=== PATIENT | female | born 1960 | race African-American/Black ===

== ENCOUNTER 2018-04-13 18:03 | Emergency (ER) | payer SELFPAY ==
[2018-04-13 19:04] LABS: Absolute Lymphocytes (CBC) 1.4 K/uL (0.7-4.9); Absolute Monocytes 0.4 K/uL (0.1-1.3); Absolute Neutrophil 3.3 K/uL (1.8-8.0); Basophils % 0.9 % (0-1.3); Eosinophils % 0.7 % (0-4.4); Hematocrit 42.1 % (36.0-45.0); Lymphocytes % 26.6 % (15.3-44.8); MCH 32.6 pg (27.0-35.0); MCV 94.9 fL (80-100); MPV 9.1 fL (7.6-11.3); Monocytes % 8.5 % (3.3-12.3); RBC Red Blood Cell Count 4.44 M/uL (3.86-4.86)
[2018-04-13 19:08] LABS: Protime INR 0.98
[2018-04-13] MEDS ORDERED: MORPHINE 4 MG/ML SYR ONE (19:16)
[2018-04-13] MEDS ORDERED: ONDANSETRON 4 MG/2 ML VIAL ONE (19:16)
[2018-04-13 19:22] LABS: ALT/SGPT 124 U/L (12-78); AST/SGOT 104 U/L (15-37); Albumin 3.9 g/dL (3.4-5.0); Alkaline Phosphatase 84 U/L (45-117); BUN Blood Urea Nitrogen 13 mg/dL (7-18); Bicarbonate 30 mmol/L (21-32); Bilirubin Direct < 0.1 mg/dL (0-0.2); Bilirubin Total 0.2 mg/dL (0.2-1.0); CKMB Creatine Kinase MB 1.3 ng/mL (0.3-3.6); Creatine Phosphokinase 138 U/L (26-192); Glucose Level 102 mg/dL (74-106); Magnesium 2.2 mg/dL (1.8-2.4); NT PRO-BNP 28 pg/mL (<125); Potassium 3.7 mmol/L (3.5-5.1); Sodium Level 140 mmol/L (136-145)
--- NOTE | 2018-04-13 19:26 | RAD REPORT ---
EXAM DESCRIPTION: RAD - Chest Single View - 04/13/2018 7:12 pm CLINICAL HISTORY: CHEST PAIN<Reason For Exam>CHEST PAIN Left-sided chest pain, left-sided breast pain COMPARISON: Chest Single View dated 08/23/2016; Chest Single View dated 08/22/2016; Chest Single View da ricarda 12/10/2015; CHEST SINGLE VIEW dated 11/06/2015<Comparisons> TECHNIQUE: AP portable chest image was obtained 1909 hours . FINDINGS: Lung volumes are low. No peripheral mass or consolidation. No significant failure or volum e overload. Trachea is midline. Heart and vasculature are normal. No measurable pleural effusion and no pneumothorax. Bilateral shoulder joint degenerative change present and stable. No acute aortic fin dings suspected. IMPRESSION: Shallow inspiration chest film with no acute cardiopulmonary finding. No significant change from comparison.
--- NOTE | 2018-04-13 20:44 | EDPHYS ---
Physician Documentation [facility] Name: Kathie Oscar Age: 57 yrs Sex: Female : 1960 Arrival Date: 04/13/2018 Time: 18:07 Bed 28 Private MD: ED Physician Edgar Sanches HPI: 04/13 18:46 This 57 yrs old Black Female presents to ER via Ambulatory with complaints of Right pm1 Breast Problem. 18:46 The patient or guardian reports chest pain that is located primarily in the right pm1 breast. Onset: this morning. The pain radiates to the right arm. Associated signs and symptoms: Pertinent negatives: abdominal pain, cough, diaphoresis, dizziness, headache, nausea, palpitations, shortness of breath, vomiting. The chest pain is described as sharp. Duration: The patient or guardian reports a single episode, that is still ongoing. Modifying factors: the symptoms are aggravated by deep breath, Palpation of right breast. Severity of pain: in the emergency department the pain is unchanged. The patient has experienced similar episodes in the past, and the symptoms today are exactly the same, to previous right breast pain. Patient reports that she is due for her annual breast mammograms and ultrasounds. The patient has not recently seen a physician. Historical: - Allergies: 18:25 Codeine; sv - Home Meds: 18:25 amlodipine 5 mg tab 1 tab once daily [Active]; lisinopril Oral [Active]; metoprolol sv tartrate 25 mg Oral tab 1 tab 2 times per day [Active]; - PMHx: 18:25 Hypertension; Myocardial infarction; sv - PSHx: 18:25 Hysterectomy; back sx; C section; R knee repair; sv - Immunization history:: Adult Immunizations up to date. - Social history:: Smoking status: Patient/guardian denies using tobacco. - Ebola Screening: : No symptoms or risks identified at this time. ROS: 18:25 Constitutional: Negative for fever, chills, and weight loss, Eyes: Negative for injury, pm1 pain, redness, and discharge, ENT: Negative for injury, pain, and discharge, Neck: Negative for injury, pain, and swelling. 18:25 Respiratory: Negative for shortness of breath, cough, wheezing, and pleuritic chest pain, Abdomen/GI: Negative for abdominal pain, nausea, vomiting, diarrhea, and constipation, Back: Negative for injury and pain, : Negative for injury, bleeding, discharge, and swelling, MS/Extremity: Negative for injury and deformity, Skin: Negative for injury, rash, and discoloration, Neuro: Negative for headache, weakness, numbness, tingling, and seizure. 18:25 Cardiovascular: Positive for chest pain, of the right breast, Negative for edema, orthopnea, palpitations. Exam: 18:25 Constitutional: This is a well developed, well nourished patient who is awake, alert, pm1 and in no acute distress. Head/Face: Normocephalic, atraumatic. Eyes: Pupils equal round and reactive to light, extra-ocular motions intact. Lids and lashes normal. Conjunctiva and sclera are non-icteric and not injected. Cornea within normal limits. Periorbital areas with no swelling, redness, or edema. ENT: Nares patent. No nasal discharge, no septal abnormalities noted. Tympanic membranes are normal and external auditory canals are clear. Oropharynx with no redness, swelling, or masses, exudates, or evidence of obstruction, uvula midline. Mucous membranes moist. Neck: Trachea midline, no thyromegaly or masses palpated, and no cervical lymphadenopathy. Supple, full range of motion without nuchal rigidity, or vertebral point tenderness. No Meningismus. Cardiovascular: Regular rate and rhythm with a normal S1 and S2. No gallops, murmurs, or rubs. Normal PMI, no JVD. No pulse deficits. Respiratory: Lungs have equal breath sounds bilaterally, clear to auscultation and percussion. No rales, rhonchi or wheezes noted. No increased work of breathing, no retractions or nasal flaring. Abdomen/GI: Soft, non-tender, with normal bowel sounds. No distension or tympany. No guarding or rebound. No evidence of tenderness throughout. Back: No spinal tenderness. No costovertebral tenderness. Full range of motion. Skin: Warm, dry with normal turgor. Normal color with no rashes, no lesions, and no evidence of cellulitis. MS/ Extremity: Pulses equal, no cyanosis. Neurovascular intact. Full, normal range of motion. 18:25 Neuro: Orientation: is normal, Motor: is normal, Sensation: is normal, no obvious gross deficits. 18:46 Chest/axilla: Breasts: abscess, not appreciated, cellulitis, is not appreciated, pm1 mass(es), in the right breast, that is tender, that is freely movable, reproduces patient's chest pain, Lisette GOULD present to disability counselor for right breast examination. Vital Signs: 18:25 BP 149 / 81; Pulse 95; Resp 16; Temp 98.8; Pulse Ox 96% ; Weight 88.45 kg; Height 5 ft. sv 3 in. (160.02 cm); Pain 8/10; 19:24 BP 134 / 78; Pulse 78; Resp 16; Pulse Ox 99% on R/A; ak1 20:23 BP 144 / 88; Pulse 78; Resp 16; Pulse Ox 100% on R/A; ak1 18:25 Body Mass Index 34.54 (88.45 kg, 160.02 cm) sv MDM: 18:36 Patient medically screened. pm1 20:38 Differential diagnosis: acute myocardial infarction, chest wall pain, Breast mass. pm1 20:39 Data reviewed: vital signs. Data interpreted: Pulse oximetry: on room air is 100 %. pm1 Interpretation: normal. Counseling: I had a detailed discussion with the patient and/or guardian regarding: the historical points, exam findings, and any diagnostic results supporting the discharge/admit diagnosis, lab results, radiology results, the need for outpatient follow up, to return to the emergency department if symptoms worsen or persist or if there are any questions or concerns that arise at home. 20:40 ED course: Palpation of patient's right breast masses reproduce pain completely. pm1 Patient with history of fibrocystic breast tissue. Patient is due for her 1 year annual mammogram/ultrasound. Patient instructed to follow up with her PCP to get these performed. 04/13 18:42 Order name: Basic Metabolic Panel; Complete Time: 19:27 pm04/13 18:42 Order name: CBC with Diff; Complete Time: 19:27 pm04/13 18:42 Order name: Ckmb; Complete Time: 19:27 pm04/13 18:42 Order name: CPK; Complete Time: 19:27 pm04/13 18:42 Order name: LFT's; Complete Time: 19:27 pm04/13 18:42 Order name: Magnesium; Complete Time: 19:27 pm04/13 18:42 Order name: NT PRO-BNP; Complete Time: 19:27 pm1 04/13 18:42 Order name: PT-INR; Complete Time: 19:27 pm04/13 18:42 Order name: Ptt, Activated; Complete Time: 19:27 pm04/13 18:42 Order name: Troponin (emerg Dept Use Only); Complete Time: 20:26 pm1 04/13 18:42 Order name: XRAY Chest (1 view); Complete Time: 19:27 pm04/13 19:25 Order name: Urine Dipstick--Ancillary (enter results) mo 04/13 19:25 Order name: Urine --Ancillary (enter results) mo 04/13 18:42 Order name: Urine Test (obtain specimen); Complete Time: 19:20 pm1 04/13 18:42 Order name: EKG; Complete Time: 18:43 pm1 04/13 18:42 Order name: Cardiac monitoring; Complete Time: 18:49 pm04/13 18:42 Order name: EKG - Nurse/Tech; Complete Time: 18:49 pm04/13 18:42 Order name: IV Saline Lock; Complete Time: 18:49 pm1 04/13 18:42 Order name: Labs collected and sent; Complete Time: 18:49 pm04/13 18:42 Order name: O2 Per Protocol; Complete Time: 18:49 pm04/13 18:42 Order name: O2 Sat Monitoring; Complete Time: 18:50 pm1 04/13 18:42 Order name: Urine Dipstick-Ancillary (obtain specimen); Complete Time: 19:20 pm1 Administered Medications: 19:19 Drug: Zofran 4 mg Route: IVP; Site: left antecubital; ak1 19:20 Follow up: Response: No adverse reaction ak1 19:20 Drug: morphine 4 mg Route: IVP; Site: left antecubital; ak1 19:21 Follow up: Response: No adverse reaction ak1 Disposition: 04/14 08:10 Co-signature as Attending Physician, Edgar Sanches MD. rn Disposition: 04/13/18 20:43 Discharged to Home. Impression: Right breast mass and pain. - Condition is Stable. - Discharge Instructions: Breast Self-Awareness, Breast Tenderness, Fibrocystic Breast Changes, [id number]. - Prescriptions for Tylenol- Codeine #3 300-30 mg Oral Tablet - take 2 tablets by ORAL route every 6 hours As needed; 20 tablet. - Medication Reconciliation Form, Thank You Letter, Antibiotic Education, Prescription Opioid Use form. - Follow up: Emergency Department; When: As needed; Reason: Worsening of condition. Follow up: Private Physician; When: 2 - 3 days; Reason: Recheck today's complaints, Continuance of care, Re-evaluation by your physician. - Problem is new. - Symptoms have improved. Signatures: Dispatcher [employer] Tania Capone RN RN Edgar Leung MD MD rn Krenek, Amber, RN RN ak1 Orlando Boo, ELECTRIC METER REPAIRER HELPER ELECTRIC METER REPAIRER HELPER pm1 Corrections: (The following items were deleted from the chart) 04/13 21:00 20:43 04/13/2018 20:43 Discharged to Home. Impression: Right breast mass and pain. ak1 Condition is Stable. Forms are Medication Reconciliation Form, Thank You Letter, Antibiotic Education, Prescription Opioid Use. Follow up: Emergency Department; When: As needed; Reason: Worsening of condition. Follow up: Private Physician; When: 2 - 3 days; Reason: Recheck today's complaints, Continuance of care, Re-evaluation by your physician. Problem is new. Symptoms have improved. pm1
--- NOTE | 2018-04-13 20:44 | ER ---
Nurse's Notes [facility] Name: Kathie Oscar Age: 57 yrs Sex: Female : 1960 Arrival Date: 04/13/2018 Time: 18:07 Bed 28 Private MD: Diagnosis: Right breast mass and pain Presentation: 04/13 18:24 Presenting complaint: Patient states: left breast pain that radiates to the left arm. sv My chest "feels funny." Worse with deep breathing. Transition of care: patient was not received from another setting of care. Onset of symptoms was April 13, 2018 at 15:00. Care prior to arrival: None. 18:24 Method Of Arrival: Ambulatory sv 18:24 Acuity: CHICO 3 sv 19:22 Risk Assessment: Do you want to hurt yourself or someone else? Patient reports no ak1 desire to harm self or others. Initial Sepsis Screen: Does the patient meet any 2 criteria? No. Patient's initial sepsis screen is negative. Does the patient have a suspected source of infection? No. Patient's initial sepsis screen is negative. Historical: - Allergies: 18:25 Codeine; sv - Home Meds: 18:25 amlodipine 5 mg tab 1 tab once daily [Active]; lisinopril Oral [Active]; metoprolol sv tartrate 25 mg Oral tab 1 tab 2 times per day [Active]; - PMHx: 18:25 Hypertension; Myocardial infarction; sv - PSHx: 18:25 Hysterectomy; back sx; C section; R knee repair; sv - Immunization history:: Adult Immunizations up to date. - Social history:: Smoking status: Patient/guardian denies using tobacco. - Ebola Screening: : No symptoms or risks identified at this time. Screenin:41 Abuse screen: Denies threats or abuse. Denies injuries from another. Nutritional ss screening: No deficits noted. Tuberculosis screening: Never had TB. Fall Risk None identified. No fall in past 12 months (0 pts). No secondary diagnosis (0 pts). IV access (20 points). Ambulatory Aid- None/Bed Rest/Nurse Assist (0 pts). Gait- Normal/Bed Rest/Wheelchair (0 pts) Mental Status- Oriented to own ability (0 pts). Assessment: 18:41 General: Appears uncomfortable, Behavior is calm, cooperative. Pain: Complains of pain ss in right breast Pain radiates to right arm Pain currently is 7 out of 10 on a pain scale. at worst was 9 out of 10 on a pain scale. Quality of pain is described as tender, "pulling" Pain began 1300 today Is continuous, Aggravated by deep breathing, palpation. Neuro: Level of Consciousness is awake, alert, obeys commands, Oriented to person, place, time, situation. Cardiovascular: Capillary refill < 3 seconds is brisk in bilateral fingers. Respiratory: Airway is patent Respiratory effort is even, unlabored, Respiratory pattern is regular, symmetrical. Respiratory: Reports pain with respiration Breath sounds are clear bilaterally. Denies cough, shortness of breath. GI: Patient currently denies diarrhea, nausea, vomiting. : No signs and/or symptoms were reported regarding the genitourinary system. EENT: Nares are clear. Derm: Skin is intact, is healthy with good turgor. Musculoskeletal: Circulation, motion, and sensation intact. Capillary refill < 3 seconds, is brisk, in bilateral fingers. Range of motion: intact in all extremities, Swelling absent. 19:21 Reassessment: Patient appears in no apparent distress at this time. No changes from ak1 previously documented assessment. Patient is alert, oriented x 3, equal unlabored respirations, skin warm/dry/pink. pt with steady gait to ER restroom. pt resting comfortably, resp even and unlabored. will continue to monitor. Vital Signs: 18:25 BP 149 / 81; Pulse 95; Resp 16; Temp 98.8; Pulse Ox 96% ; Weight 88.45 kg; Height 5 ft. sv 3 in. (160.02 cm); Pain 8/10; 19:24 BP 134 / 78; Pulse 78; Resp 16; Pulse Ox 99% on R/A; ak1 20:23 BP 144 / 88; Pulse 78; Resp 16; Pulse Ox 100% on R/A; ak1 18:25 Body Mass Index 34.54 (88.45 kg, 160.02 cm) sv ED Course: 18:07 Patient arrived in ED. es 18:25 Triage completed. sv 18:26 Arm band placed on left wrist. sv 18:28 Amelia Cortes, LUIS FERNANDO is Primary Nurse. aj1 18:36 Orlando Boo NP is PHCP. pm1 18:36 Edgar Sanches MD is Attending Physician. pm1 18:38 Inserted saline lock: 20 gauge in left antecubital area, using aseptic technique. Blood ss collected. 18:41 Patient has correct armband on for positive identification. Bed in low position. Call ss light in reach. radiographer angiogram on. Pulse ox on. NIBP on. 19:00 Placed in gown. Side rails up X2. jp3 19:02 Warm blanket given. Pillow given. jp3 19:02 EKG done, by ED staff, reviewed by Orlando Boo NP. jp3 19:11 XRAY Chest (1 view) In Process Unspecified. EDMS 19:24 Urine collected: clean catch specimen, clear, olamide colored, Amount Voided: 60mL. jp3 20:46 No provider procedures requiring assistance completed. ak1 20:57 IV discontinued, intact, bleeding controlled, No redness/swelling at site. Pressure ak1 dressing applied. Administered Medications: 19:19 Drug: Zofran 4 mg Route: IVP; Site: left antecubital; ak1 19:20 Follow up: Response: No adverse reaction ak1 19:20 Drug: morphine 4 mg Route: IVP; Site: left antecubital; ak1 19:21 Follow up: Response: No adverse reaction ak1 Outcome: 20:43 Discharge ordered by MD. pm1 20:47 Discharged to home ambulatory, with family. ak1 20:47 Condition: stable 20:53 Discharge instructions given to patient, Instructed on discharge instructions, follow ak1 up and referral plans. no drinking with medication, no driving heavy equipment, medication usage, Demonstrated understanding of instructions, follow-up care, medications, Prescriptions given X 1. 21:00 Patient left the ED. ak1 Signatures: Dispatcher [employer] EDAK Amelia Cortes RN RN aj1 Verde, Stephanie, RN RN sv Salyer, Edna es Smirch, Shelby, RN RN ss Krenek, Amber, RN RN ak1 Marinas, Patrick, NP WASTE PICKER pm1 Hood Goldman jp3 Corrections: (The following items were deleted from the chart) 18:27 18:24 Presenting complaint: Patient states: left breast pain that radiates to the left sv arm. My chest "feels funny." sv
[2018-04-13 21:23] LABS: Urine Blood NEGATIVE (NEG); Urine Glucose NEGATIVE (NEG); Urine Protein NEGATIVE (NEG); Urine Specific Gravity 1.025 (1.005-1.030)
[2018-04-13 21:33] VITALS: TEMP 98.8
[2018-04-13 21:35] VITALS: BP 144/88; O2SAT 100
--- NOTE | 2018-04-14 16:30 | EKG ---
Test Date: 2018-04-13 Test Time: 18:57:42 Grants Administrator: MILTON MEASUREMENT RESULTS: Intervals: Rate: 78 MA: 166 QRSD: 84 QT: 368 QTc: 419 [place]: P: 28 MA: 166 QRS: -19 T: 52 INTERPRETIVE STATEMENTS: Normal sinus rhythm Possible Left atrial enlargement Left ventricular hypertrophy Nonspecific T wave abnormality Abnormal ECG Compared to ECG 09/14/2017 20:02:16 Myocardial infarct finding no longer present Possible ischemia no longer present T-wave abnormality still present Electronically Signed On 04-14-18 16:26:28 CDT by Jarett Saenz
== END 2018-04-13 21:00 | disposition home or self-care (01) ==
LOC: ER 18:03
DX: N64.4 Mastodynia (principal); N63.0 Unspecified lump in unspecified breast; I10 Essential (primary) hypertension; Z88.6 Allergy status to analgesic agent
CPT/HCPCS: 36415; 71045; 80048; 80076; 81003; 81025; 82550; 82553; 83735; 83880; 84484; 85025; 85610; 85730; 93005; 96374; 96375; 99284; J2405

== ENCOUNTER 2019-07-05 12:13 | Observation (INO) | payer SELFPAY ==
[2019-07-05 12:41] LABS: Absolute Lymphocytes (CBC) 1.5 K/uL (0.7-4.9); Basophils % 0.6 % (0-1.3); Hematocrit 40.4 % (36.0-45.0); Lymphocytes % 44.4 % (15.3-44.8); MPV 8.3 fL (7.6-11.3); RBC Red Blood Cell Count 4.32 M/uL (3.86-4.86)
[2019-07-05 12:54] LABS: Protime INR 1.05
--- NOTE | 2019-07-05 12:56 | RAD REPORT ---
EXAM DESCRIPTION: Veronique Single View07/05/2019 12:46 pm CLINICAL HISTORY: Chest pain COMPARISON: 2018 FINDINGS: The lungs appear clear of acute infiltrate. The heart is normal size IMPRESSION: No acute abnormalities displayed
[2019-07-05 13:00] LABS: ALT/SGPT 53 U/L (12-78); AST/SGOT 42 U/L (15-37); Albumin 3.6 g/dL (3.4-5.0); Alkaline Phosphatase 77 U/L (45-117); BUN Blood Urea Nitrogen 12 mg/dL (7-18); Bicarbonate 26 mmol/L (21-32); Bilirubin Direct 0.1 mg/dL (0-0.2); Bilirubin Total 0.5 mg/dL (0.2-1.0); Glucose Level 168 mg/dL (74-106); Magnesium 1.9 mg/dL (1.8-2.4); NT PRO-BNP 42 pg/mL (<125); Potassium 3.8 mmol/L (3.5-5.1); Protein, Total 8.3 g/dL (6.4-8.2); Sodium Level 140 mmol/L (136-145); Troponin (Emerg Dept Use Only) < 0.02 ng/mL (0.0-0.045)
--- NOTE | 2019-07-05 13:34 | EDPHYS ---
Physician Documentation [facility] Name: Kathie Collado Age: 59 yrs Sex: Female : 1960 Arrival Date: 07/05/2019 Time: 12:14 Bed 26 Private MD: ED Physician Shi Balderrama HPI: 07/05 13:18 This 59 yrs old Black Female presents to ER via Ambulatory with complaints of Chest ma2 Pain, Neck Pain, <24hrs Old. 13:18 The patient or guardian reports chest pain that is located primarily in the substernal ma2 area. Onset: gradually, 3 day(s) ago. Associated signs and symptoms: Pertinent negatives: abdominal pain, dizziness, lower extremity swelling, lightheadedness. The chest pain is described as aching. Severity of pain: At its worst the pain was moderate in the emergency department the pain is unchanged. The patient has experienced a previous episode. Historical: - Allergies: 12:20 Codeine; aj1 - Home Meds: 12:20 lisinopril Oral [Active]; aj1 12:22 Metformin Oral [Active]; aj1 - PMHx: 12:20 Hypertension; Myocardial infarction; aj1 12:22 Diabetes - NIDDM; aj1 - Immunization history:: Flu vaccine is not up to date. - Social history:: Smoking status: Patient/guardian denies using tobacco. - Ebola Screening: : Patient denies travel to an Ebola-affected area in the 21 days before illness onset. - Family history:: not pertinent. - Hospitalizations: : No recent hospitalization is reported. ROS: 13:18 Constitutional: Negative for fever, chills, and weight loss. ma2 13:18 All other systems are negative. Exam: 13:18 Constitutional: This is a well developed, well nourished patient who is awake, alert, ma2 and in no acute distress. ENT: Nares patent. No nasal discharge, no septal abnormalities noted. Tympanic membranes are normal and external auditory canals are clear. Oropharynx with no redness, swelling, or masses, exudates, or evidence of obstruction, uvula midline. Mucous membranes moist. Chest/axilla: Normal chest wall appearance and motion. Nontender with no deformity. No lesions are appreciated. Cardiovascular: Regular rate and rhythm with a normal S1 and S2. No gallops, murmurs, or rubs. Normal PMI, no JVD. No pulse deficits. Respiratory: Lungs have equal breath sounds bilaterally, clear to auscultation and percussion. No rales, rhonchi or wheezes noted. No increased work of breathing, no retractions or nasal flaring. Abdomen/GI: Soft, non-tender, with normal bowel sounds. No distension or tympany. No guarding or rebound. No evidence of tenderness throughout. Vital Signs: 12:20 BP 180 / 102; Pulse 76; Resp 18; Temp 98.5; Pulse Ox 98% on R/A; Weight 87.09 kg (R); aj1 Height 5 ft. 3 in. (160.02 cm) (R); 12:34 BP 158 / 91; Pulse 74; Resp 22 S; Pulse Ox 96% on R/A; Pain 5/10; jp3 14:36 BP 148 / 83; Pulse 80; Resp 18; Pulse Ox 98% on R/A; mg2 12:20 Body Mass Index 34.01 (87.09 kg, 160.02 cm) aj1 MDM: 12:23 Patient medically screened. ma2 13:18 Differential diagnosis: abnormal EKG, acute myocardial infarction, anxiety, ma2 gastroesophageal reflux disease (GERD), stable angina. The patient was given aspirin in the Emergency Department. JONES Risk Score: 1- Known CAD. Data reviewed: vital signs, nurses notes. Counseling: I had a detailed discussion with the patient and/or guardian regarding: the historical points, exam findings, and any diagnostic results supporting the discharge/admit diagnosis, the presence of at least one elevated blood pressure reading (>120/80) during this emergency department visit, declined pain control in er . 13:33 ED course: discussed with naun. pa2 07/05 12:23 Order name: Basic Metabolic Panel; Complete Time: 13:19 [facility] 07/05 12:23 Order name: CBC with Diff; Complete Time: 13:19 [facility] 07/05 12:23 Order name: LFT's; Complete Time: 13:19 [facility] 07/05 12:23 Order name: Magnesium; Complete Time: 13:19 [facility] 07/05 12:23 Order name: NT PRO-BNP; Complete Time: 13:19 [facility] 07/05 12:23 Order name: PT-INR; Complete Time: 13:19 ma2 07/05 12:23 Order name: Troponin (emerg Dept Use Only); Complete Time: 13:19 ma2 07/05 14:31 Order name: Thyroid Stimulating Hormone EDOH 07/05 14:31 Order name: CBC with Automated Diff EDMS 07/05 14:31 Order name: CBC with Automated Diff EDMS 07/05 14:31 Order name: CKMB Creatine Kinase MB EDOH 07/05 14:31 Order name: CKMB Creatine Kinase MB EDOH 07/05 14:31 Order name: CKMB Creatine Kinase MB EDOH 07/05 14:31 Order name: CKMB Creatine Kinase MB [facility]OH 07/05 12:23 Order name: XRAY Chest (1 view); Complete Time: 13:19 ma2 07/05 12:23 Order name: EKG; Complete Time: 12:24 ma2 07/05 12:23 Order name: Cardiac monitoring; Complete Time: 12:41 ma2 07/05 14:31 Order name: CONS Physician Consult [facility]OH 07/05 14:31 Order name: Consistent Carb (ADA) 1800 Will [facility]OH 07/05 14:31 Order name: Comprehensive Metabolic Panel [facility] 07/05 14:31 Order name: Comprehensive Metabolic Panel [facility] 07/05 14:31 Order name: Lipid Profile [facility] 07/05 14:31 Order name: Lipid Profile [facility] 07/05 14:31 Order name: Magnesium [facility] 07/05 14:31 Order name: Magnesium [facility] 07/05 14:31 Order name: Troponin I [facility] 07/05 14:31 Order name: Troponin I [facility] 07/05 14:31 Order name: Troponin I [facility] 07/05 14:31 Order name: Troponin I [facility] 07/05 14:34 Order name: Echo with Doppler [facility] 07/05 12:23 Order name: EKG - Nurse/Tech; Complete Time: 12:41 ma2 07/05 12:23 Order name: IV Saline Lock; Complete Time: 12:41 ma2 07/05 12:23 Order name: Labs collected and sent; Complete Time: 12:41 ma2 07/05 12:23 Order name: O2 Per Protocol; Complete Time: 12:41 ma2 07/05 12:23 Order name: O2 Sat Monitoring; Complete Time: 12:41 ma2 Administered Medications: No medications were administered Disposition: 07/05/19 13:34 Hospitalization ordered by Albert Carty for Observation. Preliminary diagnosis is Other chest pain. - Bed requested for Telemetry/MedSurg (observation). - Status is Observation. mg2 - Condition is Stable. - Problem is new. - Symptoms are unchanged. UTI on Admission? No Signatures: Dispatcher [employer] EDMS Amelia Cortes RN RN aj1 Joy Pablo RN RN dw Shi Balderrama MD MD ma2 Surjit Ritchie RN RN mg2 Corrections: (The following items were deleted from the chart) 15:17 13:34 Hospitalization Ordered by Albert Carty MD for Observation. Preliminary dw diagnosis is Other chest pain. Bed requested for Telemetry/MedSurg (observation). Status is Observation. Condition is Stable. Problem is new. Symptoms are unchanged. UTI on Admission? No. ma2 15:49 15:17 07/05/2019 13:34 Hospitalization Ordered by Albert Carty MD for Observation. mg2 Preliminary diagnosis is Other chest pain. Bed requested for Telemetry/MedSurg (observation). Status is Observation. Condition is Stable. Problem is new. Symptoms are unchanged. UTI on Admission? No. dw
--- NOTE | 2019-07-05 13:34 | ER ---
Nurse's Notes [facility] Name: Kathie Collado Age: 59 yrs Sex: Female : 1960 Arrival Date: 07/05/2019 Time: 12:14 Bed 26 Private MD: Diagnosis: Other chest pain Presentation: 07/05 12:17 Presenting complaint: Patient states: "It started a few days ago, pains in my neck and aj1 its going down to chest. And I've been having real bad headaches too, and every so often I get a funny feelings in my chest and it makes me do like a hacking cough" Denies recent injury. Denies shortness of breath. Transition of care: patient was not received from another setting of care. Onset of symptoms was July 01, 2019. Risk Assessment: Do you want to hurt yourself or someone else? Patient reports no desire to harm self or others. Initial Sepsis Screen: Does the patient meet any 2 criteria? No. Patient's initial sepsis screen is negative. Does the patient have a suspected source of infection? No. Patient's initial sepsis screen is negative. Care prior to arrival: None. 12:17 Method Of Arrival: Ambulatory aj1 12:17 Acuity: [facility] 3 aj1 Triage Assessment: 12:20 General: Appears in no apparent distress. comfortable, Behavior is calm, cooperative, aj1 appropriate for age. Pain: Complains of pain in left trapezius, anterior aspect of left upper chest and left side of neck Pain does not radiate. Pain currently is 7 out of 10 on a pain scale. Pain began 3-4 days ago Is continuous, Alleviated by nothing. Aggravated by nothing. Neuro: Level of Consciousness is awake, alert, obeys commands, Oriented to person, place, time, situation. Cardiovascular: Reports chest pain, Denies shortness of breath, Patient's skin is warm and dry. Respiratory: Airway is patent Respiratory effort is even, unlabored, Respiratory pattern is regular, symmetrical. Historical: - Allergies: 12:20 Codeine; aj1 - Home Meds: 12:20 lisinopril Oral [Active]; aj1 12:22 Metformin Oral [Active]; aj1 - PMHx: 12:20 Hypertension; Myocardial infarction; aj1 12:22 Diabetes - NIDDM; aj1 - Immunization history:: Flu vaccine is not up to date. - Social history:: Smoking status: Patient/guardian denies using tobacco. - Ebola Screening: : Patient denies travel to an Ebola-affected area in the 21 days before illness onset. - Family history:: not pertinent. - Hospitalizations: : No recent hospitalization is reported. Screenin:55 Abuse screen: Denies threats or abuse. Denies injuries from another. Nutritional mg2 screening: No deficits noted. Tuberculosis screening: No symptoms or risk factors identified. Fall Risk IV access (20 points). Assessment: 12:55 General: Appears in no apparent distress. comfortable, Behavior is calm, cooperative. mg2 Pain: Complains of pain in neck Pain radiates to chest , left shoulder Pain currently is 3 out of 10 on a pain scale. Quality of pain is described as aching, Pain began gradually. Neuro: Level of Consciousness is awake, alert, obeys commands, Oriented to person, place, time, situation. Cardiovascular: Capillary refill < 3 seconds Patient's skin is warm and dry. Respiratory: Airway is patent Respiratory effort is even, unlabored, Respiratory pattern is regular, symmetrical. GI: No signs and/or symptoms were reported involving the gastrointestinal system. : No signs and/or symptoms were reported regarding the genitourinary system. EENT: No signs and/or symptoms were reported regarding the EENT system. Derm: Skin is intact, is healthy with good turgor, Skin is pink, warm \\T\\ dry. normal. Musculoskeletal: Circulation, motion, and sensation intact. Capillary refill < 3 seconds. 14:36 Reassessment: Patient appears in no apparent distress at this time. Patient and/or mg2 family updated on plan of care and expected duration. Pain level reassessed. Patient is alert, oriented x 3, equal unlabored respirations, skin warm/dry/pink. hospitalist came and spoke to the patient. admission advised. Vital Signs: 12:20 BP 180 / 102; Pulse 76; Resp 18; Temp 98.5; Pulse Ox 98% on R/A; Weight 87.09 kg (R); aj1 Height 5 ft. 3 in. (160.02 cm) (R); 12:34 BP 158 / 91; Pulse 74; Resp 22 S; Pulse Ox 96% on R/A; Pain 5/10; jp3 14:36 BP 148 / 83; Pulse 80; Resp 18; Pulse Ox 98% on R/A; mg2 12:20 Body Mass Index 34.01 (87.09 kg, 160.02 cm) aj1 ED Course: 12:14 Patient arrived in ED. as 12:19 Triage completed. aj1 12:22 Arm band placed on Patient placed in an exam room. aj1 12:23 Shi Balderrama MD is Attending Physician. ma2 12:25 Placed in gown. Bed in low position. Call light in reach. Side rails up X 1. Warm jp3 blanket given. Verbal reassurance given. surveillance monitor on. Pulse ox on. NIBP on. 12:25 Patient maintains SpO2 saturation greater than 95% on room air. jp3 12:26 Surjit Ritchie, RN is Primary Nurse. mg2 12:46 XRAY Chest (1 view) In Process Unspecified. EDMS 12:49 EKG done, by failure analysis technician. reviewed by Shi Balderrama MD. tc 12:57 No provider procedures requiring assistance completed. Inserted saline lock: 20 gauge mg2 in right forearm, using aseptic technique. Blood collected. 13:34 Albert Carty MD is Hospitalizing Provider. ma2 15:35 Patient admitted, IV remains in place. mg2 Administered Medications: No medications were administered Outcome: 13:34 Decision to Hospitalize by Provider. ma2 15:34 Admitted to Med/surg accompanied by tech, via wheelchair, room 224, with chart, Report mg2 called to LUIS FERNANDO Marx 15:34 Condition: stable 15:34 Instructed on the need for admit, Demonstrated understanding of instructions. 15:49 Patient left the ED. mg2 Signatures: Dispatcher [employer] EDMS Amelia Cortes, RN RN aj1 Elsie Adams Tiffany, base remover EKG Ttc Shi Balderrama MD MD ma2 Surjit Ritchie, LUIS FERNANDO RN mg2 Hood Goldman jp3
[2019-07-05] MEDS ORDERED: ONDANSETRON 4 MG/2 ML VIAL IV PRN (14:21)
[2019-07-05 14:59] LABS: CKMB Creatine Kinase MB 1.3 ng/mL (0.3-3.6); Troponin I < 0.02 ng/mL (0.0-0.045)
[2019-07-05 16:01] VITALS: BMI 34.0
[2019-07-05] MEDS: ACETAMINOPHEN 500 MG TAB PO PRN ×2 (16:20→23:19)
[2019-07-05] MEDS: ENOXAPARIN 40 MG/0.4 ML SQ SCH (16:21)
[2019-07-05] MEDS: INSULIN -REGULAR HUMAN 50 UNIT/0.5 ML ML SQ SCH ×2 (16:30→21:00)
[2019-07-05] MEDS ORDERED: POTASSIUM CL SA 10 MEQ TAB PO ONE (17:00)
--- NOTE | 2019-07-05 18:35 | EKG ---
Test Date: 2019-07-05 Test Time: 12:42:50 Field Observer: MOHAMUD MEASUREMENT RESULTS: Intervals: Rate: 71 ME: 170 QRSD: 76 QT: 378 QTc: 410 [place]: P: 48 ME: 170 QRS: -17 T: 85 INTERPRETIVE STATEMENTS: Normal sinus rhythm Possible Left atrial enlargement Left ventricular hypertrophy with repolarization abnormality Abnormal ECG No previous ECG available for comparison Electronically Signed On 07-05-19 18:34:49 STAFF ATTORNEY by Jarett Saenz
[2019-07-05 21:08] LABS: CKMB Creatine Kinase MB 1.2 ng/mL (0.3-3.6); Troponin I < 0.02 ng/mL (0.0-0.045)
[2019-07-05] MEDS: lisinopriL 5 MG TAB PO SCH (21:21)
[2019-07-05] MEDS: ATORVASTATIN 20 MG TAB PO SCH ×2 (21:21→21:26)
[2019-07-05] MEDS: METFORMIN HCL 500 MG TAB PO SCH (21:23)
--- NOTE | 2019-07-06 01:41 | HP ---
Date of Admission: 07/05/2019 Chief Complaint: Chest pain. History Of Present Illness: This is a 59-year-old female, who presented for chest pain. She has a history of type 2 diabetes, hypertension, and myocardial infarction. This patient reported significant family history of heart attack. Her mother, sister, and brother all had heart attack at a young age. This patient has started to experience chest pain 3 days ago. The chest pain is located in substernal. She described it as tightness. The chest pain spreads to her neck and the left shoulder. The pain is consistent. No alleviating or aggravating factors. She experienced some nonproductive cough when she had some palpitation. No fever or chills. No nausea or vomiting. No shortness of breath. She did not take medication for chest pain. She has been taking metformin for diabetes and lisinopril for high blood pressure. No lightheaded or syncope. No numbness or weakness. This patient presented to the emergency room for persistent chest pain. In the ED, WBC 13.4 and hemoglobin 14.1. Sodium 140 and potassium of 3.8. First set of troponin unremarkable. Chest x- ray and EKG unremarkable. There is no ST elevation or depression. She was admitted for observation for chest pain. Past Medical History: 1. Hypertension. 2. Type 2 diabetes. 3. Myocardial infarction. Review of Systems: Some headache. No lightheaded or syncope. No vision or hearing change. No runny nose or sore throat. No neck stiffness. No shortness of breath. Nonproductive cough as mentioned above. She experienced some palpitation. No nausea or vomiting. No abdominal pain or diarrhea. No dysuria or hematuria. No weakness or numbness. No confusion or mental status change. No anxiety or depression. No skin rash. Social History: Patient denied smoking or alcohol abuse. She has been living with her family. Physical Examination: Vital Signs: Stable. HEENT: PERRLA. Moist mouth. Atraumatic head. Neck: Supple. Chest: Normal breath sounds. No wheezing. No respiratory distress. Heart: Normal S1, S2. Regular rhythm and rate. No murmur. Abdomen: Soft, nontender. Bowel sounds are present. Extremities: No edema, no cyanosis. Neuro: Oriented x3. Nonfocal. Psych: No anxiety. No speech pressure. Skin: No rashes. Laboratory Data: Sodium 140, potassium 3.8. Troponin negative. Imaging Studies: Chest x-ray unremarkable. EKG without ST change. Assessment And Plan: 1. Chest pain. This patient has risk factor including hypertension, diabetes , and myocardial infarction. She has a significant family history of heart attack. Her first troponin negative. Chest x-ray and EKG unremarkable. We will follow up troponin series. Echo was ordered. We started aspirin and Lipitor empirically. We will consult supervisor title. Put her on the telemonitoring. 2. Type 2 diabetes. We started sliding scale and diabetic diet. We will hold metformin at this moment. 3. Hypertension. Patient's blood pressure is at the higher side. We will resume lisinopril, put IV hydralazine as needed. We will closely follow up this patient. Further plan will be based on her condition. QT/MODL Voice ID: [id number] MTDD
[2019-07-06 04:17] LABS: Urine Appearance CLEAR; Urine Bilirubin NEGATIVE (NEG); Urine Blood NEGATIVE (NEG); Urine Color YELLOW; Urine Glucose NEGATIVE (NEG); Urine Protein NEGATIVE (NEG); Urine Specific Gravity 1.025 (1.005-1.030); Urine Urobilinogen 0.2 mg/dL (0.2-1.0)
[2019-07-06 04:22] LABS: Urine Microscopic Reflex NO UMIC
[2019-07-06 07:14] LABS: Absolute Lymphocytes (CBC) 1.7 K/uL (0.7-4.9); Basophils % 0.5 % (0-1.3); Hematocrit 39.1 % (36.0-45.0); Lymphocytes % 49.8 % (15.3-44.8); MPV 8.7 fL (7.6-11.3); RBC Red Blood Cell Count 4.16 M/uL (3.86-4.86)
[2019-07-06 07:21] LABS: ALT/SGPT 51 U/L (12-78); AST/SGOT 37 U/L (15-37); Albumin 3.3 g/dL (3.4-5.0); Alkaline Phosphatase 74 U/L (45-117); BUN Blood Urea Nitrogen 17 mg/dL (7-18); Bicarbonate 26 mmol/L (21-32); Bilirubin Total 0.3 mg/dL (0.2-1.0); CKMB Creatine Kinase MB < 1.0 ng/mL (0.3-3.6); Glucose Level 146 mg/dL (74-106); HDL Cholesterol 36 mg/dL (40-60); LDL Cholesterol, Calculated 168 (<130); Magnesium 1.9 mg/dL (1.8-2.4); Potassium 3.9 mmol/L (3.5-5.1); Protein, Total 7.3 g/dL (6.4-8.2); Sodium Level 140 mmol/L (136-145); Troponin I < 0.02 ng/mL (0.0-0.045)
[2019-07-06] MEDS: INSULIN -REGULAR HUMAN 50 UNIT/0.5 ML ML SQ SCH ×2 (07:30→11:30)
[2019-07-06] MEDS: lisinopriL 5 MG TAB PO SCH (08:23)
[2019-07-06] MEDS: ENOXAPARIN 40 MG/0.4 ML SQ SCH (08:23)
[2019-07-06] MEDS: METFORMIN HCL 500 MG TAB PO SCH (08:23)
[2019-07-06 08:46] LABS: Blood Morphology Comment NOT SEEN (NOT SEEN); Platelet Estimate ADEQ
[2019-07-06] MEDS ORDERED: ASPIRIN EC 81 MG TAB PO SCH (09:00)
--- NOTE | 2019-07-06 09:33 | ECHO ---
HEIGHT: 5 ft 3 in WEIGHT: 192 lb 0 oz DATE OF STUDY: 07/05/[address]: Kayleigh Pelaez MD 2-DIMENSIONAL: YES M.MODE: YES DOPPLER: YES COLOR FLOW: YES TDS: NO PORTABLE: NO DEFINITY: NO BUBBLE STUDY: NO DIAGNOSIS: CHEST PAIN CARDIAC HISTORY: CATHERIZATION: YES SURGERY: NO PROSTHETIC VALVE: NO PACEMAKER: NO MEASUREMENTS (cm) DIASTOLIC (NORMALS) SYSTOLIC (NORMALS) IVSd 1.1 (0.6-1.2) LA Diam 3.2 (1.9-4.0) LVEF 68% LVIDd 4.2 (3.5-5.7) LVIDs 2.6 (2.0-3.5) %FS 37% LVPWd 1.1 (0.6-1.2) Ao Diam 2.6 (2.0-3.7) 2 DIMENSIONAL ASSESSMENT: RIGHT ATRIUM: NORMAL LEFT ATRIUM: NORMAL RIGHT VENTRICLE: NORMAL LEFT VENTRICLE: NORMAL TRICUSPID VALVE: NORMAL MITRAL VALVE: NORMAL PULMONIC VALVE: NORMAL AORTIC VALVE: SCLEROSIS PERICARDIAL EFFUSION: NONE AORTIC ROOT: NORMAL LEFT VENTRICULAR WALL MOTION: NORMAL DOPPLER/COLOR FLOW: MILD TRICUSPID REGURGITATION. COMMENTS: NORMAL LEFT VENTRICULAR SIZE AND FUNCTION. MILD TRICUSPID REGURGITATION. NORMAL RIGHT VENTRICULAR SYSTOLIC PRESSURE. AORTIC SCLEROSIS WITH NO STENOSIS. TECHNOLOGIST: Larry PEREIRA
--- NOTE | 2019-07-06 10:17 | CON ---
Date of Consultation: 07/06/[address] Pelaez on 07/05/2019, I saw the patient on 07/06/2019. Reason For Consultation: Chest pain. History Of Present Illness: Ms. Collado is a patient who has hypertension and diabetes. She is 59 ye ars old. Apparently, had an PA about 10 years ago and had a catheterization done showing normal salbador naries. She came in with sharp stabbing chest pain radiating to the left neck. No nausea, vomiting, diaphoresis, PND, orthopnea, pedal edema, palpitations, or syncope. The pain did not radiate to the jaw. It was nonexertional. She did not have any fever or chills. She did not have any cough. No PND, orthopnea, pedal edema, palpitations, or syncope. Pain was sharp, stabbing, increased with karolina thing. Allergies: SHE IS ALLERGIC TO CODEINE. Review of Systems: Negative. Social History: Negative. Family History: Negative. Medications: At home include metformin and lisinopril. Physical Examination: Vital Signs: Stable. Afebrile. HEENT: Negative. Neck: Supple with no bruit. Chest: Clear to auscultation and percussion. Cardiac: Exam revealed a regular rhythm and rate with S4 gallops. Abdomen: Benign. Extremities: Revealed no clubbing, cyanosis, or edema. Diagnostic Data: All within normal limits. Impression And Plan: Pleuritic chest pain, most likely musculoskeletal. Has had a negative catheter ization in the past. I would like to get an echocardiogram. She does not have any pericarditis. Sh cecile has a history of hypertension and diabetes. These are well controlled. Her echocardiogram is norm al, we will see her as an outpatient and decide if she needs any further cardiac testing. SHAHZAD/ANTONIO Voice ID: [id number] Report ID: [id number]
[2019-07-06] MEDS ORDERED: SUCRALFATE 1 GM TABLET PO SCH (11:30)
[2019-07-06 13:50] VITALS: BP 165/88; TEMP 97.2
[2019-07-06 14:18] VITALS: O2SAT 94
--- NOTE | 2019-07-07 00:38 | DS ---
Date of Discharge: 07/06/2019 Hospital Course: This patient is a 59-year-old female, who presented for chest pain . She has a history of type 2 diabetes, hypertension, and myocardial infarction. She also reported significant family history of heart attack. In the ED, her vitals are stable. WBC is 13.4, hemoglob in 14.1. Troponin negative. Chest x-ray and EKG unremarkable. She was admitted for observation. T roponin followup remains negative. Lipid panel demonstrated triglycerides 218 and a total cholestero l 248 and HDL 36. We also gave her aspirin and atorvastatin. Cardiology was consulted, who thought this is atypical chest pain. Chest pain has actually improved after admission. Discussed with the c ardiologist, who recommended discharge. This patient has hyperlipidemia. Extensive education regard ing compliance and diet was given. Physical Examination On Discharge: Vital Signs: Temperature 97.2, heart rate 63, respiratory rate 2 0, blood pressure 165/88, oxygen saturation 96% on room air. HEENT: PERRLA. EOMI. No JVD. Atraumatic. CHEST: Clear to auscultation. No labored breathing. No wheezing. Heart: Normal S1, S2. Regular rhythm and rate. No murmur. Abdomen: Soft, nontender. Bowel sounds present. Extremities: No edema, no cyanosis. Neuro: Patient awake, alert, and oriented x4. Mood stable. No depression. Skin: No rashes. Laboratory Data: WBC 3.3, hemoglobin 13.8, platelet 154. Sodium 140, potassium 3.9, creatinine 0.69 , triglycerides of 218, total cholesterol 248, LDL 168, HDL 36. Discharge Diagnoses: 1.Chest pain. 2.Coronary artery disease. 3.Hypertension. 4.Hyperlipidemia. 5.Type 2 diabetes. Discharge Diet: Diabetic diet with low fat. Discharge Activity: As tolerated. Discharge Medications: Aspirin 81 mg daily, atorvastatin 20 daily, omeprazole 20 mg b.i.d., Carafate 1 g q.i.d. For the rest, please see discharge medication list. Followup: We will follow Cardiology in 1 week. Followup PCP in 1 week. Discharge Instructions: Call emergency room if experienced shortness of breath or chest pain. Pleas e be compliant with medications. I spent about 30 minutes to discharge patient including education, physical examination, and discharg e summary. QT/MODL Voice ID: [id number] Report ID: [id number]
== END 2019-07-06 15:08 | disposition home health service (06) ==
LOC: ER 12:13 → ERHOLD 14:22 → 2ND 15:35
PROVIDERS: ADMIT Internal Medicine; ATTEND Internal Medicine
DX: I25.10 Atherosclerotic heart disease of native coronary artery without angina pectoris (principal); E11.9 Type 2 diabetes mellitus without complications; I10 Essential (primary) hypertension; E78.5 Hyperlipidemia, unspecified; I25.2 Old myocardial infarction; R07.89 Other chest pain
CPT/HCPCS: 36415; 71045; 80048; 80053; 80061; 80076; 81003; 82553; 82947; 83735; 83880; 84100; 84443; 84484; 85025; 85610; 93005; 93306; 99285; G0378; J1650

== ENCOUNTER 2020-05-22 21:12 | Emergency (ER) | payer SELFPAY ==
[2020-05-22] MEDS ORDERED: IPRATROPIUM BROM 0.5MG/2.5ML ONE (22:14)
[2020-05-22] MEDS ORDERED: ALBUTEROL 2.5 MG/3 ML NEB SOL ONE (22:14)
--- NOTE | 2020-05-22 23:23 | ER ---
Nurse's Notes [facility] Name: Kathie Collado Age: 60 yrs Sex: Female : 1960 Arrival Date: 05/22/2020 Time: 21:19 Bed 18 Private MD: Diagnosis: Bronchitis, not specified as acute or chronic Presentation: 05/22 21:19 Chief complaint: EMS states: Reports she has been sick for the past two weeks. Went to urgent care, was swabbed for covid and was prescribed azithromycin and albuterol. She was seen in urgent care on Wednesday and was tested for covid, she was negative for both test. Pt reports her symptoms have not improved. Coronavirus screen: At this time, the client does not indicate any symptoms associated with coronavirus-19. Ebola Screen: No symptoms or risks identified at this time. Initial Sepsis Screen: Does the patient meet any 2 criteria? No. Patient's initial sepsis screen is negative. Does the patient have a suspected source of infection? No. Patient's initial sepsis screen is negative. Risk Assessment: Do you want to hurt yourself or someone else? Patient reports no desire to harm self or others. Onset of symptoms was May 12, 2020. 21:19 Method Of Arrival: EMS: [facility] 21:19 Acuity: [facility] 3 ea Historical: - Allergies: 21:27 Codeine; ea - Home Meds: 21:27 Metformin Oral [Active]; lisinopril Oral [Active]; Albuterol Inhl [Active]; Metoprolol ea Tartrate Oral [Active]; atorvastatin oral oral [Active]; - PMHx: 21:27 Myocardial infarction; Hypertension; Diabetes - NIDDM; ea - Immunization history:: Adult Immunizations up to date. - Social history:: Smoking status: Patient denies any tobacco usage or history of. Screenin:25 Abuse screen: Denies threats or abuse. Nutritional screening: No deficits noted. ea Tuberculosis screening: No symptoms or risk factors identified. Fall Risk None identified. Assessment: 05/23 00:47 Reassessment: Patient and/or family updated on plan of care and expected duration. Pain ea level reassessed. Patient is alert, oriented x 3, equal unlabored respirations, skin warm/dry/pink. Discharge instruction given to patient, verbalized the understanding of instruction. Pt left ED ambulatory tolerating well. Vital Signs: 05/22 21:19 BP 157 / 89; Pulse 91; Resp 19; Temp 100.8; Pulse Ox 100% ; Weight 86.18 kg; Height 5 ea ft. 3 in. (160.02 cm); 23:30 BP 140 / 70; Pulse 102; Resp 18; Pulse Ox 100% ; ea 05/23 00:49 BP 120 / 66; Pulse 97; Resp 18; Temp 99.7; Pulse Ox 100% on R/A; ea 05/22 21:19 Body Mass Index 33.66 (86.18 kg, 160.02 cm) ea ED Course: 05/22 21:19 Patient arrived in ED. tw4 21:19 Ariel Orosco MD is Attending Physician. tw4 21:25 Triage completed. ea 21:25 Arm band placed on right wrist. Patient placed in an exam room, on a stretcher, on ea pulse oximetry. 21:25 Patient has correct armband on for positive identification. Bed in low position. Call ea light in reach. Side rails up X2. 21:59 CXR XRAY In Process Unspecified. EDMS 22:58 Throat Culture Sent. bb3 05/23 00:48 No provider procedures requiring assistance completed. Patient did not have IV access ea during this emergency room visit. Administered Medications: 05/22 22:11 Drug: DuoNeb (3:1) (2.5 mg - 0.5 mg) 3 ml Route: Nebulizer; bb3 05/23 00:45 Follow up: Response: No adverse reaction ea 05/22 23:23 Drug: Ibuprofen 600 mg Route: PO; sg 05/23 00:45 Follow up: Response: No adverse reaction ea Outcome: 05/22 23:23 Discharge ordered by . tw4 05/23 00:49 Discharged to home ambulatory, with family. ea Condition: stable Discharge instructions given to patient, Instructed on discharge instructions, follow up and referral plans. medication usage, Demonstrated understanding of instructions, follow-up care, medications, Prescriptions given X 5 00:50 Patient left the ED. ea Addendum: 05/24/2020 14:43 Addendum: COVID-19 Result: Negative result given to RN to notify pt. Notified pt of s s negative COVID 19 swab results. Pt advised that even with a negative test result they should remain in isolation until symptom free for 3 days without medication. Pt also advised to return to the ED for worsening symptoms. Signatures: Dispatcher [employer] David Junior RN RN sg Smirch, Shelby, RN RN ss Antunez, Elena, RN RN ea Wadley, Terrence, MD MD tw4 Carolyne Curran bb3
--- NOTE | 2020-05-22 23:23 | EDPHYS ---
Physician Documentation [facility] Name: Kathie Collado Age: 60 yrs Sex: Female : 1960 Arrival Date: 05/22/2020 Time: 21:19 Bed 18 Private MD: ED Physician Ariel Orosco HPI: 05/23 01:49 This 60 yrs old Black Female presents to ER via EMS with complaints of Shortness Of tw4 Breath. 01:49 The patient has shortness of breath at rest. Onset: The symptoms/episode began/occurred tw4 today. Duration: The symptoms are continuous, and are unchanged since they started. The patient's shortness of breath has no apparent modifying factors. Associated signs and symptoms: The patient has no apparent associated signs or symptoms. Severity of symptoms: At their worst the symptoms were moderate in the emergency department the symptoms are unchanged. The patient has not experienced similar symptoms in the past. Historical: - Allergies: 05/22 21:27 Codeine; ea - Home Meds: 21:27 Metformin Oral [Active]; lisinopril Oral [Active]; Albuterol Inhl [Active]; Metoprolol ea Tartrate Oral [Active]; atorvastatin oral oral [Active]; - PMHx: 21:27 Myocardial infarction; Hypertension; Diabetes - NIDDM; ea - Immunization history:: Adult Immunizations up to date. - Social history:: Smoking status: Patient denies any tobacco usage or history of. ROS: 05/23 01:49 Constitutional: Negative for fever, chills, and weight loss, Eyes: Negative for injury, tw4 pain, redness, and discharge, Cardiovascular: Negative for chest pain, palpitations, and edema, Abdomen/GI: Negative for abdominal pain, nausea, vomiting, diarrhea, and constipation, Back: Negative for injury and pain, MS/Extremity: Negative for injury and deformity, Skin: Negative for injury, rash, and discoloration. Respiratory: Positive for shortness of breath, Negative for cough, dyspnea on exertion, hemoptysis, orthopnea, pleurisy. Exam: 01:49 Constitutional: This is a well developed, well nourished patient who is awake, alert, tw4 and in no acute distress. Head/Face: Normocephalic, atraumatic. Chest/axilla: Normal chest wall appearance and motion. Nontender with no deformity. No lesions are appreciated. Cardiovascular: Regular rate and rhythm with a normal S1 and S2. No gallops, murmurs, or rubs. Normal PMI, no JVD. No pulse deficits. Respiratory: Lungs have equal breath sounds bilaterally, clear to auscultation and percussion. No rales, rhonchi or wheezes noted. No increased work of breathing, no retractions or nasal flaring. Abdomen/GI: Soft, non-tender, with normal bowel sounds. No distension or tympany. No guarding or rebound. No evidence of tenderness throughout. Back: No spinal tenderness. No costovertebral tenderness. Full range of motion. MS/ Extremity: Pulses equal, no cyanosis. Neurovascular intact. Full, normal range of motion. Neuro: Awake and alert, GCS 15, oriented to person, place, time, and situation. Cranial nerves II-XII grossly intact. Motor strength 5/5 in all extremities. Sensory grossly intact. Cerebellar exam normal. Normal gait. Vital Signs: 05/22 21:19 BP 157 / 89; Pulse 91; Resp 19; Temp 100.8; Pulse Ox 100% ; Weight 86.18 kg; Height 5 ea ft. 3 in. (160.02 cm); 23:30 BP 140 / 70; Pulse 102; Resp 18; Pulse Ox 100% ; ea 05/23 00:49 BP 120 / 66; Pulse 97; Resp 18; Temp 99.7; Pulse Ox 100% on R/A; ea 05/22 21:19 Body Mass Index 33.66 (86.18 kg, 160.02 cm) ea MDM: 05/22 21:19 Patient medically screened. tw4 05/23 01:49 Differential diagnosis: Bronchitis pneumonia, Pneumothorax pulmonary edema, reactive tw4 airway disease. Antibiotic administration: Not indicated. Data reviewed: vital signs, nurses notes. Data interpreted: Pulse oximetry: Interpretation:. Counseling: I had a detailed discussion with the patient and/or guardian regarding: the historical points, exam findings, and any diagnostic results supporting the discharge/admit diagnosis, lab results, radiology results. Medication response: albuterol nebulizer treatment(s) relieved the patient's symptoms. The patient is no longer wheezing. Response to treatment: and as a result, I will discharge patient. 05/22 21:22 Order name: COVID-19 tw4 05/22 21:22 Order name: Flu tw4 05/22 21:22 Order name: Strep tw4 05/22 21:22 Order name: CXR XRAY tw4 05/22 22:23 Order name: Throat Culture EDLA 05/22 21:22 Order name: Document PUI#; Complete Time: 22:59 tw4 05/22 21:22 Order name: Droplet/Contact Precautions; Complete Time: 22:59 tw4 05/22 21:22 Order name: Labs collected and sent; Complete Time: 22:59 tw4 05/22 21:22 Order name: Notify Health Dept [phone]/ ; Complete Time: 23:00 tw4 05/22 21:22 Order name: O2 Per Protocol; Complete Time: 00:12 tw4 Administered Medications: 05/22 22:11 Drug: DuoNeb (3:1) (2.5 mg - 0.5 mg) 3 ml Route: Nebulizer; bb3 05/23 00:45 Follow up: Response: No adverse reaction ea 05/22 23:23 Drug: Ibuprofen 600 mg Route: PO; sg 05/23 00:45 Follow up: Response: No adverse reaction ea Disposition: 05/22/20 23:23 Discharged to Home. Impression: Bronchitis, not specified as acute or chronic. - Condition is Stable. - Discharge Instructions: Acute Bronchitis, Adult, Upper Respiratory Infection, Adult, Viral Respiratory Infection, Ebas-Ah-Warp, Cough, Adult. - Prescriptions for Tessalon Perles 100 mg Oral Capsule - take 1 capsule by ORAL route every 8 hours As needed; 15 capsule. Albuterol Sulfate 90 mcg/actuation - inhale 1-2 puff by INHALATION route every 4-6 hours; 1 Inhaler. Albuterol Sulfate 2.5 mg /3 mL (0.083 %) Inhalation Solution for Nebulization - inhale 1 unit by NEBULIZATION route every 8 hours As needed; 1 box. Medrol (Peter) 4 mg Oral Tablets, Dose Pack - take 1 tablet by ORAL route as directed - follow package instructions; 1 packet. Flovent HFA 44 mcg/actuation Inhalation Aerosol - inhale 2 puffs by INHALATION route 2 times per day; 1 Cartridge. - Medication Reconciliation Form, Thank You Letter, Antibiotic Education, Prescription Opioid Use form. - Follow up: Private Physician; When: Upon discharge from the Emergency Department; Reason: Recheck today's complaints, Continuance of care, Re-evaluation by your physician. - Problem is new. - Symptoms have improved. Signatures: Dispatcher [employer] EDDavid Quintana, RN RN Sita Gentile RN Ariel Mckinnon ea, MD MD tw4 Carolyne Curran bb3 Corrections: (The following items were deleted from the chart) 00:50 05/22 23:23 05/22/2020 23:23 Discharged to Home. Impression: Bronchitis, not specified ea as acute or chronic. Condition is Stable. Forms are Medication Reconciliation Form, Thank You Letter, Antibiotic Education, Prescription Opioid Use. Follow up: Private Physician; When: Upon discharge from the Emergency Department; Reason: Recheck today's complaints, Continuance of care, Re-evaluation by your physician. Problem is new. Symptoms have improved. tw4
[2020-05-22] MEDS ORDERED: IBUPROFEN 200 MG TAB PO ONE (23:29)
[2020-05-22] MEDS ORDERED: IBUPROFEN 400 MG TAB ONE (23:29)
[2020-05-22] MEDS ORDERED: IBUPROFEN 100 MG/5 ML UCUP ONE (23:34)
[2020-05-23 01:45] VITALS: O2SAT 100
[2020-05-23 01:50] VITALS: BP 120/66; TEMP 99.7
--- NOTE | 2020-05-23 08:01 | RAD REPORT ---
EXAM DESCRIPTION: RAD - Chest Single View - 05/22/2020 9:59 pm CLINICAL HISTORY: COUGH COMPARISON: Portable June 2019 TECHNIQUE: AP portable chest image was obtained 05/22/2020 9:59 pm . FINDINGS: Lung volumes are low which accentuates the baseline interstitial pattern. No peripheral ma ss or consolidation. Significant failure or volume overload are doubtful. Heart and vasculature are normal. No measurable pleural effusion and no pneumothorax. No acute bony abnormality seen. No acute aortic findings suspected. IMPRESSION: Limited shallow inspiration film without acute cardiopulmonary finding.
== END 2020-05-23 00:50 | disposition home or self-care (01) ==
LOC: ER 21:12
DX: J40 Bronchitis, not specified as acute or chronic (principal); Z20.828 Contact with and (suspected) exposure to other viral communicable diseases; I10 Essential (primary) hypertension; E11.9 Type 2 diabetes mellitus without complications; I25.2 Old myocardial infarction; Z88.5 Allergy status to narcotic agent
CPT/HCPCS: 71045; 87070; 87081; 87804; 99284; U0002

== ENCOUNTER 2022-02-21 22:19 | Emergency (ER) | payer BC, SELFPAY ==
[2022-02-21] MEDS ORDERED: KETOROLAC 30 MG/ML INJ ONE (23:00)
[2022-02-21] MEDS ORDERED: NA CHLORIDE 0.9% 1,000 ML ONE (23:00)
[2022-02-21] MEDS ORDERED: ONDANSETRON 4 MG/2 ML VIAL ONE (23:00)
[2022-02-21] MEDS ORDERED: FENTANYL CITR 100 MCG/2 ML ONE (23:00)
[2022-02-21 23:01] LABS: Absolute Lymphocytes (CBC) 1.4 K/uL (0.7-4.9); Hematocrit 36.8 % (36.0-45.0); Lymphocytes % 29.5 % (15.3-44.8); MPV 7.5 fL (7.6-11.3); RBC Red Blood Cell Count 4.04 M/uL (3.86-4.86)
[2022-02-21 23:18] LABS: Albumin 3.7 g/dL (3.4-5.0); Bilirubin Total 0.4 mg/dL (0.2-1.0); Potassium 3.3 mmol/L (3.5-5.1); Protein, Total 7.4 g/dL (6.4-8.2)
--- NOTE | 2022-02-21 23:58 | EDPHYS ---
Physician Documentation [facility] Name: Kathie Collado Age: 61 yrs Sex: Female : 1960 Arrival Date: 02/21/2022 Time: 22:22 Bed 5 Private MD: ED Physician Orlni Nichols HPI: 02/21 22:51 This 61 yrs old Black Female presents to ER via Ambulatory with complaints of Fall asuncion Injury, Hip Pain, Foot Pain. 22:51 Details of fall: The patient fell from an upright position. Onset: The symptoms/episode asuncion began/occurred just prior to arrival. Associated injuries: The patient sustained injury to the low back, right foot and lateral aspect of left thigh, decreased range of motion. Historical: - Allergies: 22:35 No Known Allergies; as6 - Home Meds: 22:35 atorvastatin oral [Active]; Metformin Oral [Active]; Glipizide Oral [Active]; as6 Metoprolol Tartrate Oral [Active]; - PMHx: 22:35 Myocardial infarction; Hypertensive disorder; Diabetes mellitus; as6 - PSHx: 22:35 back; knee; section; Total abdominal hysterectomy; as6 - Immunization history:: Client reports receiving the 2nd dose of the Covid vaccine. - Social history:: Smoking status: Patient denies any tobacco usage or history of. - Immunization history: Last tetanus immunization: unknown. - Family history:: not pertinent. ROS: 22:51 Constitutional: Negative for fever, chills, and weight loss, Eyes: Negative for injury, asuncion pain, redness, and discharge, ENT: Negative for injury, pain, and discharge, Neck: Negative for injury, pain, and swelling, Cardiovascular: Negative for chest pain, palpitations, and edema, Respiratory: Negative for shortness of breath, cough, wheezing, and pleuritic chest pain, Abdomen/GI: Negative for abdominal pain, nausea, vomiting, diarrhea, and constipation, Back: Negative for injury and pain, : Negative for injury, bleeding, discharge, and swelling, Skin: Negative for injury, rash, and discoloration, Neuro: Negative for headache, weakness, numbness, tingling, and seizure, Psych: Negative for depression, anxiety, suicide ideation, homicidal ideation, and hallucinations, Allergy/Immunology: Negative for hives, rash, and allergies, Endocrine: Negative for neck swelling, polydipsia, polyuria, polyphagia, and marked weight changes, Hematologic/Lymphatic: Negative for swollen nodes, abnormal bleeding, and unusual bruising. 22:51 MS/extremity: Positive for decreased range of motion, pain, swelling, tenderness, of the left hip. Exam: 22:51 Constitutional: This is a well developed, well nourished patient who is awake, alert, asuncion and in no acute distress. Head/Face: Normocephalic, atraumatic. Eyes: Pupils equal round and reactive to light, extra-ocular motions intact. Lids and lashes normal. Conjunctiva and sclera are non-icteric and not injected. Cornea within normal limits. Periorbital areas with no swelling, redness, or edema. ENT: Nares patent. No nasal discharge, no septal abnormalities noted. Tympanic membranes are normal and external auditory canals are clear. Oropharynx with no redness, swelling, or masses, exudates, or evidence of obstruction, uvula midline. Mucous membranes moist. Neck: Trachea midline, no thyromegaly or masses palpated, and no cervical lymphadenopathy. Supple, full range of motion without nuchal rigidity, or vertebral point tenderness. No Meningismus. Chest/axilla: Normal chest wall appearance and motion. Nontender with no deformity. No lesions are appreciated. Cardiovascular: Regular rate and rhythm with a normal S1 and S2. No gallops, murmurs, or rubs. Normal PMI, no JVD. No pulse deficits. Respiratory: Lungs have equal breath sounds bilaterally, clear to auscultation and percussion. No rales, rhonchi or wheezes noted. No increased work of breathing, no retractions or nasal flaring. Abdomen/GI: Soft, non-tender, with normal bowel sounds. No distension or tympany. No guarding or rebound. No evidence of tenderness throughout. Back: No spinal tenderness. No costovertebral tenderness. Full range of motion. Skin: Warm, dry with normal turgor. Normal color with no rashes, no lesions, and no evidence of cellulitis. Neuro: Awake and alert, GCS 15, oriented to person, place, time, and situation. Cranial nerves II-XII grossly intact. Motor strength 5/5 in all extremities. Sensory grossly intact. Cerebellar exam normal. Normal gait. Psych: Awake, alert, with orientation to person, place and time. Behavior, mood, and affect are within normal limits. 22:51 Musculoskeletal/extremity: ROM: limited active range of motion, limited passive range of motion, limited active range of motion due to pain, limited passive range of motion due to pain, Circulation is intact in all extremities. Sensation intact. Compartment Syndrome exam of affected extremity: is normal. the lumbar area, left low back, right low back, right foot and left leg Vital Signs: 22:31 BP 164 / 83; Pulse 80; Resp 18 S; Temp 98.7(O); Pulse Ox 99% on R/A; Weight 88.45 kg as6 (R); Height 5 ft. 3 in. (160.02 cm) (R); Pain 8/10; 23:42 BP 133 / 77; Pulse 89; Resp 16; Pulse Ox 97% on R/A; Pain 0/10; kl 07 00:16 BP 133 / 69; Pulse 72; Resp 18 S; Pulse Ox 96% on R/A; as6 02/21 22:31 Body Mass Index 34.54 (88.45 kg, 160.02 cm) as6 England Coma Score: 02/21 22:41 Eye Response: spontaneous(4). Verbal Response: oriented(5). Motor Response: obeys as6 commands(6). Total: 15. Trauma Score (Adult): 22:41 Eye Response: spontaneous(1); Verbal Response: oriented(1); Motor Response: obeys as6 commands(2); Systolic BP: > 89 mm Hg(4); Respiratory Rate: 10 to 29 per min(4); Ellie Score: 15; Trauma Score: 12 MDM: 22:30 Patient medically screened. asuncion 22:57 Differential diagnosis: contusion, fracture, multiple trauma, sprain, strain. Data asuncion reviewed: vital signs, nurses notes, radiologic studies, CT scan, plain films. Data interpreted: dividend clerk: not applicable for this patient encounter. rate is 80 beats/min, rhythm is regular, Pulse oximetry: on room air is 99 %. Test interpretation: by ED physician or midlevel provider: plain radiologic studies. Counseling: I had a detailed discussion with the patient and/or guardian regarding: the historical points, exam findings, and any diagnostic results supporting the discharge/admit diagnosis, lab results, radiology results, the need for outpatient follow up, for definitive care, a family practitioner, a orthopedic surgeon. 02/21 22:46 Order name: CBC with Diff; Complete Time: 23:54 [facility] 02/21 22:46 Order name: Comprehensive Metabolic Panel; Complete Time: 23:54 [facility] 02/21 22:46 Order name: Pelvis XRAY [facility] 02/21 22:46 Order name: Hip Left 2 View XRAY [facility] 02/21 22:46 Order name: CT Lumbar Spine Wo Con [facility] 02/21 22:47 Order name: Foot Right 3 View XRAY [facility] 02/21 22:47 Order name: Ice pack; Complete Time: 23:01 [facility] 02/21 23:54 Order name: PO challenge: juice; Complete Time: 00:15 [facility] Administered Medications: 22:55 Drug: Zofran (Ondansetron) 4 mg Route: IVP; Site: right antecubital; kl 23:41 Follow up: Response: No adverse reaction; Marked relief of symptoms kl 22:58 Drug: fentaNYL (PF) 50 mcg Route: IVP; Site: right antecubital; kl 23:41 Follow up: Response: No adverse reaction; Marked relief of symptoms kl 23:02 Drug: NS 0.9% 1000 ml Route: IV; Rate: 1 bolus; Site: right antecubital; kl 02/22 00:15 Follow up: Response: No adverse reaction; IV Status: Completed infusion; IV Intake: as6 1000ml 02/21 23:02 Drug: Ketorolac 30 mg Route: IVP; Site: right antecubital; kl 23:41 Follow up: Response: No adverse reaction; Marked relief of symptoms kl Disposition Summary: 02/21/22 23:57 Discharge Ordered Location: Home asuncion Problem: new asuncion Symptoms: have improved asuncion Condition: Stable asuncion Diagnosis - Fall on same level, unspecified asuncion - Contusion of right foot asuncion - Contusion of left hip asuncion - Low back pain asuncion - Strain of muscle, fascia and tendon of abdomen, lower back and pelvis asuncion Followup: asuncion - With: Private Physician - When: 2 - 3 days - Reason: Recheck today's complaints, Continuance of care, Re-evaluation by your physician Followup: asuncion - With: Justyn Waddell MD - When: 2 - 3 days - Reason: Recheck today's complaints, Continuance of care, Re-evaluation by your physician Discharge Instructions: - Discharge Summary Sheet asuncion - Acute Back Pain, Adult asuncion - Chronic Back Pain asuncion - Musculoskeletal Pain asuncion - Chronic Back Pain, [id number] asuncion Forms: - Medication Reconciliation Form asuncion - Thank You Letter asuncion - Antibiotic Education asuncion - Prescription Opioid Use [facility] Prescriptions: - Ibuprofen 600 mg Oral Tablet - take 1 tablet by ORAL route every 8 hours As needed take with food; 21 tablet; asuncion Refills: 0, Product Selection Permitted - Cyclobenzaprine 5 mg Oral Tablet - take 1 tablet by ORAL route 3 times per day As needed; 15 tablet; Refills: 0, asuncion Product Selection Permitted - Tylenol-Codeine #3 300 mg-30 mg Oral - take 2 tablet by ORAL route every 6 hours; 24 tablet; Refills: 0, Product [facility] Selection Permitted Signatures: Dispatcher [employer] Meggan Hogan, RN Orlin Wilkerson MD MD cha Slawson, Ashby, RN RN as6 Corrections: (The following items were deleted from the chart) 22:38 22:35 Allergies: No Known Allergies; as6 as6 22:38 22:35 Home Meds: atorvastatin Oral; as6 as6 22:38 22:35 Home Meds: Metformin Oral; as6 as6 22:38 22:35 Home Meds: Metoprolol Tartrate Oral; as6 as6 22:38 22:35 Home Meds: Glipizide Oral; as6 6 22:38 22:35 PMHx: Diabetes - NIDDM; as6 as6 22:38 22:35 PMHx: Hypertension; as6 6 22:38 22:35 PMHx: Myocardial infarction; as6 6 22:38 22:35 PSHx: None; as6 as6
--- NOTE | 2022-02-21 23:58 | ER ---
Nurse's Notes [facility] Name: Kathie Collado Age: 61 yrs Sex: Female : 1960 Arrival Date: 02/21/2022 Time: 22:22 Bed 5 Private MD: Diagnosis: Fall on same level, unspecified;Contusion of right foot;Contusion of left hip;Low back pain;Strain of muscle, fascia and tendon of abdomen, lower back and pelvis Presentation: 02/21 22:31 Chief complaint: Patient states: "I fell a couple hours ago. I tripped and fell in the as6 kitchen. My left hip is hurting". Coronavirus screen: At this time, the client does not indicate any symptoms associated with coronavirus-19. Ebola Screen: No symptoms or risks identified at this time. Initial Sepsis Screen: Does the patient meet any 2 criteria? No. Patient's initial sepsis screen is negative. Does the patient have a suspected source of infection? No. Patient's initial sepsis screen is negative. Risk Assessment: Do you want to hurt yourself or someone else? Patient reports no desire to harm self or others. Onset of symptoms was February 21, 2022. 22:31 Method Of Arrival: Ambulatory as6 22:31 Acuity: CHICO 3 as6 22:39 Care prior to arrival: None. Mechanism of Injury: Fall from standing position. Trauma as6 event details: Injury occurred in the [facility]. Trauma Activation: Not Applicable Physician: ED Physician; Name: ; Notified At: ; Arrived At: Physician: General Surgeon; Name: ; Notified At: ; Arrived At: Physician: Radiology; Name: ; Notified At: ; Arrived At: Physician: Respiratory; Name: ; Notified At: ; Arrived At: Physician: Lab; Name: ; Notified At: ; Arrived At: Historical: - Allergies: 22:35 No Known Allergies; as6 - Home Meds: 22:35 atorvastatin oral [Active]; Metformin Oral [Active]; Glipizide Oral [Active]; as6 Metoprolol Tartrate Oral [Active]; - PMHx: 22:35 Myocardial infarction; Hypertensive disorder; Diabetes mellitus; as6 - PSHx: 22:35 back; knee; section; Total abdominal hysterectomy; as6 - Immunization history:: Client reports receiving the 2nd dose of the Covid vaccine. - Social history:: Smoking status: Patient denies any tobacco usage or history of. - Immunization history: Last tetanus immunization: unknown. - Family history:: not pertinent. Screenin:40 Abuse screen: Denies threats or abuse. Denies injuries from another. Nutritional as6 screening: No deficits noted. Tuberculosis screening: No symptoms or risk factors identified. Fall Risk Fall in past 12 months (25 points). Total Valle Fall Scale indicates Low Risk Score (25-44 pts). Side Rails Up X 2 Frequent Obs/Assesments occuring Family Present and informed to notify staff if they need to leave bedside. Primary Survey: 22:40 NO uncontrolled hemorrhage observed. A: The client is awake and alert. The airway is as6 patent. Breathing/Chest: Spontaneous respiratory effort, equal unlabored respirations, breath sounds clear bilaterally, regular pattern, symmetrical chest rise and fall. Circulation: No external hemorrhage present. Regular and strong central pulse, skin warm/dry/normal color. Disability Pupils are equal, round, reactive to light and accommodation. Client is alert. Exposure/Environment: A warming method has been applied: A warm blanket has been provided to the patient. 02/22 00:17 Reassessment Alertness and Airway: Awake and alert. The airway is patent. Breathing: as6 Spontaneous respiratory effort, equal unlabored respirations, breath sounds clear bilaterally, regular pattern with symmetrical chest rise and fall. Circulation: No external hemorrhage noted. Regular and strong central pulse, skin warm/dry/normal color. Disability: Pupils Pupils are equal, round, reactive to light and accomodation. Alert. Secondary Survey: 02/21 22:40 HEENT: No deficits noted. Gastrointestinal: No deficits noted. : No deficits noted. as6 Musculoskeletal: Reports pain in pelvis and back and left hip. Assessment: 22:39 General: Appears in no apparent distress. Behavior is calm, cooperative. Pain: as6 Complains of pain in back and left hip. Neuro: Level of Consciousness is awake, alert, obeys commands, Oriented to person, place, time, situation. Respiratory: Respiratory effort is even, unlabored. Musculoskeletal: Reports pain in back and left hip. Vital Signs: 22:31 BP 164 / 83; Pulse 80; Resp 18 S; Temp 98.7(O); Pulse Ox 99% on R/A; Weight 88.45 kg as6 (R); Height 5 ft. 3 in. (160.02 cm) (R); Pain 8/10; 23:42 BP 133 / 77; Pulse 89; Resp 16; Pulse Ox 97% on R/A; Pain 0/10; kl 07 00:16 BP 133 / 69; Pulse 72; Resp 18 S; Pulse Ox 96% on R/A; as6 02/21 22:31 Body Mass Index 34.54 (88.45 kg, 160.02 cm) as6 Montrose Coma Score: 02/21 22:41 Eye Response: spontaneous(4). Verbal Response: oriented(5). Motor Response: obeys as6 commands(6). Total: 15. Trauma Score (Adult): 22:41 Eye Response: spontaneous(1); Verbal Response: oriented(1); Motor Response: obeys as6 commands(2); Systolic BP: > 89 mm Hg(4); Respiratory Rate: 10 to 29 per min(4); Montrose Score: 15; Trauma Score: 12 ED Course: 22:22 Patient arrived in ED. bp1 22:29 Dl Mcgarry, LUIS FERNANDO is Primary Nurse. as6 22:30 Orlin Nichols MD is Attending Physician. asuncion 22:35 Triage completed. as6 22:38 Arm band placed on. as6 22:41 Bed in low position. Call light in reach. Side rails up X2. Pulse ox on. NIBP on. Warm as6 blanket given. 22:42 Patient maintains SpO2 saturation greater than 95% on room air. Thermoregulation: warm as6 blanket given to patient. 23:01 Inserted saline lock: 18 gauge in right antecubital area, using aseptic technique. as6 Blood collected. 23:41 CT Lumbar Spine Wo Con In Process Unspecified. EDMS 23:48 Pelvis XRAY In Process Unspecified. EDMS 23:48 Hip Left 2 View XRAY In Process Unspecified. EDMS 23:48 Foot Right 3 View XRAY In Process Unspecified. EDMS 23:57 Justyn Waddell MD is Referral Physician. asuncion 02/22 00:17 No provider procedures requiring assistance completed. IV discontinued, intact, as6 bleeding controlled, No redness/swelling at site. Pressure dressing applied. Administered Medications: 02/21 22:55 Drug: Zofran (Ondansetron) 4 mg Route: IVP; Site: right antecubital; kl 23:41 Follow up: Response: No adverse reaction; Marked relief of symptoms kl 22:58 Drug: fentaNYL (PF) 50 mcg Route: IVP; Site: right antecubital; kl 23:41 Follow up: Response: No adverse reaction; Marked relief of symptoms kl 23:02 Drug: NS 0.9% 1000 ml Route: IV; Rate: 1 bolus; Site: right antecubital; kl 02/22 00:15 Follow up: Response: No adverse reaction; IV Status: Completed infusion; IV Intake: as6 1000ml 02/21 23:02 Drug: Ketorolac 30 mg Route: IVP; Site: right antecubital; kl 23:41 Follow up: Response: No adverse reaction; Marked relief of symptoms Medication: 02/22 00:17 VIS not applicable for this client. as6 Intake: 02/21 22:41 PO: 0ml; Total: 0ml. as6 02/22 00:15 IV: 1000ml; Total: 1000ml. as6 Outcome: 02/21 23:57 Discharge ordered by MD. roland 02/22 00:17 Discharged to home ambulatory. as6 Condition: stable Patient's length of stay was not longer than 2 hours. 00:17 Discharge instructions given to patient, Instructed on discharge instructions, follow as6 up and referral plans. medication usage, Demonstrated understanding of instructions, follow-up care, medications, Prescriptions given X 3. 00:17 Patient left the ED. as6 Signatures: Dispatcher [employer] EDMS Meggan Wall RN RN kl Anderson, Corey, MD MD cha Paniauga, Brittany bp1 Slawson, Ashby, RN RN as6 Corrections: (The following items were deleted from the chart) 02/21 22:38 22:35 Allergies: No Known Allergies; as6 as6 22:38 22:35 Home Meds: atorvastatin Oral; as6 as6 22:38 22:35 Home Meds: Metformin Oral; as6 as6 22:38 22:35 Home Meds: Metoprolol Tartrate Oral; as6 as6 22:38 22:35 Home Meds: Glipizide Oral; as6 as6 22:38 22:35 PMHx: Diabetes - NIDDM; as6 as6 22:35 PMHx: Hypertension; as6 as6 22:35 PMHx: Myocardial infarction; as6 6 22:35 PSHx: None; as6 as6
[2022-02-22 00:29] VITALS: BP 133/69; O2SAT 96
[2022-02-22 00:35] VITALS: TEMP 98.7
--- NOTE | 2022-02-23 11:56 | RAD REPORT ---
EXAM DESCRIPTION: Spine Lumbar Wo Con CLINICAL HISTORY: Bone mass or bone pain, lumbar spine, no prior imaging COMPARISON: None. TECHNIQUE: Contiguous axial images of lumbar spine were obtained utilizing 2 mm slice thickness at 2 mm interval reconstruction. In addition multiplanar reformats in the sagittal and coronal plane were generated and reviewed This exam was performed according to our departmental dose-optimization protocol, which includes auto mated exposure control, adjustment of the mA and/or kV according to patient size and/or use of iterat lisa reconstruction technique. FINDINGS: There is anatomic alignment of the lumbar spine. There is posterior transpedicular screw f ixation device at L5/S1. Vertebral body height is preserved without evidence of acute fracture or sub luxation. There is minimal posterior facet hypertrophy at L3-S1. No evidence for significant spinal c anal stenosis and/or neural foraminal narrowing. No retroperitoneal or paraspinal abnormality is seen . IMPRESSION: No acute fracture or subluxation of the lumbar spine. Posterior transpedicular screw fixation device at L5/S1. Electronically signed by: Cj Mckenzie MD 02/22/2022 12:09 AM CDT Due to temporary technical issues with the PACS/Fluency reporting system, reports are being signed by the in house radiologists without review as a courtesy to insure prompt reporting. The interpreting radiologist is fully responsible for the content of the report.
--- NOTE | 2022-02-23 12:00 | RAD REPORT ---
EXAM DESCRIPTION: Foot Right 3 View 02/22/2022 12:09 AM CDT CLINICAL HISTORY: 61 years, Female, PAIN COMPARISON: None FINDINGS: 3 X-ray views of the right foot (Frontal, lateral and oblique views) were performed. There is mild diffuse bony osteopenia. No acute bony injuries were demonstrated. There are minimal degener ative changes DIP joint and first metatarsophalangeal joint. Degenerative changes along the mid foot. Spurring posterior aspect of the calcaneus at site of insertion of the Achilles tendon and plantaris fascia. There are no gross intraosseous lesions. No periosteal reaction were seen. IMPRESSION: No acute bony injuries were demonstrated. Mild degenerative changes. Electronically signed by: Cj Mckenzie MD 02/22/2022 12:10 AM CDT Due to temporary technical issues with the PACS/Fluency reporting system, reports are being signed by the in house radiologists without review as a courtesy to insure prompt reporting. The interpreting radiologist is fully responsible for the content of the report.
--- NOTE | 2022-02-23 12:04 | RAD REPORT ---
EXAM DESCRIPTION: Pelvis 02/22/2022 12:05 AM CDT CLINICAL HISTORY: 61 years, Female, PAIN COMPARISON: None FINDINGS: 1 single frontal view of the pelvis was obtained. The pelvic brim is intact. Posterior tra nspedicular screw fixation device lower lumbar spine. Pelvic brim is intact No areas of acute bony in juries were demonstrated. No gross soft tissue abnormality is identified. There are no gross intr aosseous lesions. No periosteal reaction were seen. Bilateral hip joints demonstrate mild to mode rate degenerative changes. IMPRESSION: No acute bony injuries were demonstrated. Mild to moderate degenerative changes. Electronically signed by: Cj Mckenzie MD 02/22/2022 12:06 AM CDT Due to temporary technical issues with the PACS/Fluency reporting system, reports are being signed by the in house radiologists without review as a courtesy to insure prompt reporting. The interpreting radiologist is fully responsible for the content of the report.
--- NOTE | 2022-02-23 12:09 | RAD REPORT ---
EXAM DESCRIPTION: Hip Left 2 View 02/22/2022 12:10 AM CDT CLINICAL HISTORY: 61 years, Female, PAIN COMPARISON: None FINDINGS: 2 views of the hip (frontal view of the left hip and frogleg view of the left hip) were ob tained. There are degenerative changes along the anterosuperior aspect of the acetabulum as well as s pur formation within the greater trochanter. No areas of acute bony injuries were demonstrated. No gross soft tissue abnormality is identified. There are no gross intraosseous lesions. No perioste al reaction were seen. IMPRESSION: Degenerative changes. No acute bony injuries. Electronically signed by: Cj Mckenzie MD 02/22/2022 12:11 AM CDT Due to temporary technical issues with the PACS/Fluency reporting system, reports are being signed by the in house radiologists without review as a courtesy to insure prompt reporting. The interpreting radiologist is fully responsible for the content of the report.
== END 2022-02-22 00:17 | disposition home or self-care (01) ==
LOC: ER 22:19
DX: S39.012A Strain of muscle, fascia and tendon of lower back, initial encounter (principal); S39.011A Strain of muscle, fascia and tendon of abdomen, initial encounter; S39.013A Strain of muscle, fascia and tendon of pelvis, initial encounter; S70.02XA Contusion of left hip, initial encounter; S90.31XA Contusion of right foot, initial encounter; W18.30XA Fall on same level, unspecified, initial encounter; I10 Essential (primary) hypertension; E11.9 Type 2 diabetes mellitus without complications; I25.2 Old myocardial infarction
CPT/HCPCS: 85025; 36415; 80053; 72131; 72170; 73502; 73630; J3010; J7030; J2405; 96361; 96374; 96375; 99284